=== PATIENT | female | born 1970 | race Two or more races ===

== ENCOUNTER 2021-07-25 07:19 | Emergency (ER) | payer OTHER ==
[~2021-07-25] VITALS: Ht 170.2 cm; Wt 88.5 kg
== END 2021-07-25 12:31 ==
LOC: ER 07:19
DX: R22.1 Localized swelling, mass and lump, neck (principal); K11.8 Other diseases of salivary glands

== ENCOUNTER 2021-08-17 07:43 | Outpatient (CLI) | payer OTHER | END 2021-08-17 07:47 | disposition home or self-care (01) | LOC: SONOGRAMA 07:43 | PROVIDERS: ATTEND Pathology Anatomic Pathology & Clinical Pathology | DX: D37.030 Neoplasm of uncertain behavior of the parotid salivary glands (principal) ==

== ENCOUNTER 2021-11-02 10:29 | Day surgery (SDC) | payer OTHER ==
[~2021-11-02] VITALS: Ht 170.2 cm; Wt 90.3 kg
== END 2021-11-02 19:00 | disposition home or self-care (01) ==
LOC: CIR.AMB 10:29
PROVIDERS: ATTEND Otolaryngology
DX: D35.1 Benign neoplasm of parathyroid gland (principal); Z88.6 Allergy status to analgesic agent; Z20.822 Contact with and (suspected) exposure to COVID-19; R59.0 Localized enlarged lymph nodes; K11.0 Atrophy of salivary gland

== ENCOUNTER 2023-07-02 10:31 | Emergency (ER) | payer OTHER ==
[~2023-07-02] VITALS: Ht 170.2 cm; Wt 90.7 kg
== END 2023-07-02 15:35 ==
LOC: ER 10:31
DX: R05.9 Cough, unspecified (principal); Z88.6 Allergy status to analgesic agent